=== PATIENT | male | born 1995 | race African-American/Black ===

== ENCOUNTER 2021-01-10 13:42 | Emergency (ER) | payer OTHER ==
[~2021-01-10] VITALS: Ht 182.9 cm; Wt 110.9 kg
[~2021-01-10 13:42] MED LIST: NAPR-682 PO
[2021-01-10 13:55] VITALS: BP 132/83
--- NOTE | 2021-01-10 14:38 | PHYS DOC ---
Past Medical History Past Medical History: No Pertinent History Past Surgical History: No Surgical History Smoking Status: Current Every Day Smoker Alcohol Use: None Drug Use: None General Adult EDM: Chief Complaint: HAND PROBLEM HPI: HPI: Patient is a 25-year-old male who presents to the emergency department for multiple complaints. Patient was brought in by EMS. Patient is reporting left hand pain that started today. Patient and his child's mother got in a dispute and PD was called, patient was placed in handcuffs, he reports that he had a boxer's fracture that was surgically repaired 3 days ago in [facility] and following the placement of handcuffs he started having pain. No treatment for pain prior to arrival. Patient is also requesting to be tested for COVID-19 as well as STDs. Patient reports that he has a productive cough but that he is a smoker and always has a cough. Patient denies any STI symptoms. Patient juan es urethral discharge, urethral pain, fevers, shortness of breath, loss of taste or smell, any injury, decreased range of motion or decreased sensation to hand. Review of Systems: Review of Systems: 14 body systems of the review of systems have been reviewed. See HPI for pertinent positive and negative responses, otherwise all other systems are neg ative, nonpertinent or noncontributory Heart Score: C/O Chest Pain: N/A Risk Factors: Risk Factors: DM, Current or recent (<one month) smoker, HTN, HLP, family history of CAD, obesity. Risk Scores: Score 0 - 3: 2.5% MACE over next 6 weeks - Discharge Home Score 4 - 6: 20.3% MACE over next 6 weeks - Admit for Clinical Observation Score 7 - 10: 72.7% MACE over next 6 weeks - Early Invasive Strategies Allergies: Allergies: Allergies Coded Allergies Type Severity Reaction Last Updated Verified No Known Drug Allergies 06/15/13 No Physical Exam: PE: Constitutional: Well developed, well nourished, no acute distress, non-toxic appearance. [] HENT: Normocephalic, atraumatic, bilateral external ears normal, oropharynx moist, no oral exudates, nose normal. [] Eyes: PERRL, EOMI, conjunctiva normal, no discharge. [] Neck: Normal range of motion, no stridor Cardiovascular: Normal peripheral perfusion Lungs & Thorax: Normal work of breathing, no tachypnea Abdomen: Soft and flat Skin: Warm, dry, no erythema, no rash. [] Back: Normal range of motion Extremities: No tenderness, no cyanosis, no clubbing, ROM intact, no edema. Left hand: Mild swelling noted to the dorsal aspect of patient's left hand, patient has [address] to dorsal aspect of patient's left hand proximal to fourth finger, there are no surrounding signs of infection, range of motion intact, neuro intact Neurologic: Alert and oriented X 3, normal motor function, normal sensory function, no focal deficits noted. [] Psychologic: Affect normal, judgement normal, mood normal. [] Current Patient Data: Vital Signs: Vital Signs Date Time Temp Pulse Resp B/P (MAP) Pulse Ox O2 Delivery O2 Flow Rate FiO2 01/10/21 13:55 98.3 94 17 132/83 (99) 98 Room Air 98.3 EKG: EKG: [] Radiology/Procedures: Radiology/Procedures: []REASON: hand surgery pain PROCEDURE: HAND LEFT 3V EXAM: Left hand, 3 views. HISTORY: Pain. COMPARISON: None. FINDINGS: 3 views of the left hand are obtained. There is internal fixation of a fourth metacarpal fracture with a pin in near anatomic alignment. There is suspected slight callus formation surrounding the fracture line, favoring a subacute etiology. There is dorsal hand soft tissue swelling. IMPRESSION: Internal fixation of a suspected subacute healing fracture of the fourth metacarpal. There are no prior studies for comparison. Electronically signed by: Kacie Hernandez MD (01/10/2021 2:36 PM) [id number] DICTATED and SIGNED BY: KACIE HERNANDEZ MD DATE: 01/10/21 [id number] 0 Course & Med Decision Making: Course & Med Decision Making Pertinent Labs and Imaging studies reviewed. (See chart for details) [] Patient presents to the emergency department for multiple complaints. He reports that after being kept by the police today he was complaining of left hand pain, he had a boxer's fracture repaired surgically 3 days ago. Patient is also wanting to be tested for STDs although he has no symptoms. Patient is also wanting to be tested for Covid because he is a chronic productive cough. Patient was tested for gonorrhea and chlamydia and will be notified of those results when they become available. He was also tested for COVID-19 and will be notified of those results when they become available. X-ray was performed of patient's left hand that showed internal fixation and a healing fracture. Patient's pain was treated in the ER.. Patient's surgical site appears to be healing well, the 1 suture is intact and there is no signs of infection. Hand is neurovascularly intact and he has range of motion of hand. Patient advised to take anti-inflammatory medications and apply ice at home. He is requesting narcotic pain medication-pt will be discharged home with tramadol. Patient has been uncooperative and belligerent during his entire ER stay. He refused Covid testing and STI testing although he was the one that requested the testing. Patient refused to tell us the pharmacy which he wanted his tramadol electronically transmitted. We notify patient that narcotic prescriptions can only be electronically transmitted and it is required that we electronically transmitted to a pharmacy. Patient refused to give us a pharmacy name therefore tramadol was not sent for him. Patient is currently in PD custody and they will be arresting him once he is discharged from the emergency department. Patient became very aggressive and began spitting on PD once he was discharged and being arrested. He was advised to follow-up with the surgeon that repaired his boxer's fracture. I discussed with patient all findings and diagnostic testing as well as the need to follow-up with PCP for further evaluation and treatment or return to the ER if any new or worsening symptoms. Strict return precautions were also discussed at length. Patient voiced understanding and agreement with the plan. Patient is hemodynamically stable at the time of disposition. Savita Disclaimer: Savita Disclaimer: This electronic medical record was generated, in whole or in part, using a voice recognition dictation system. Departure Departure Impression: Primary Impression: Hand pain Qualified Codes: M79.642 - Pain in left hand Additional Impressions: Screen for sexually transmitted diseases Person under investigation for COVID-19 Disposition: HOME / SELF CARE / HOMELESS Condition: GOOD Referrals: JACKY CORONEL (PCP) Patient Instructions: Hand Fracture, Sexually Transmitted Disease, [id number] Additional Instructions: You were seen in the emergency department for left hand pain. An x-ray was performed that shows that the pin is in place and your fracture is healing. You requested to be tested for COVID-19 and STIs. You will be notified of these results via telephone in approximately 2 days when they become available. Please self isolate until you receive these results. You requested to be treated preventatively for STIs. You received a antibiotic shot in the ER and you will be discharged home with an antibiotic that you need to take. Start and finish it completely. Avoid any sexual intercourse for 10 to 14 days. You can take anti-inflammatory medications such as ibuprofen or naproxen for your pain at home. You can apply ice and use elevation to help with swelling. Follow-up with the surgeon that performed your boxer's fracture repair as soon as possible. Return to the emergency department if you develop worsening of your pain, decreased range of motion or decreased sensation to your hand, shortness of breath, chest pain, high fevers refractory to treatment. EMERGENCY DEPARTMENT GENERAL DISCHARGE INSTRUCTIONS Thank you for coming to [facility] Emergency Department (ED) today and trusting us with you care. We trust that you had a positive experience in our E mergency Department. If you wish to speak to the department management, you may call the Director at [phone]. YOUR FOLLOW UP INSTRUCTIONS ARE FOLLOWS: 1. Do you have a private Doctor? If you do not have a private doctor, please ask for a resource list of physicians or clinics that may be able to assist you with follow up care. 2. The Emergency Physicain has interpreted your x-rays. The X-Ray specialist will also review them. If there is a change in the findings, you will be notified in 48 hours when at all possible. 3. A lab test or culture has been done, your results will be reviewed and you will be notified if you need a change in treatment. ADDITIONAL INSTRUCTIONS AND INFORMATION: 1. Your care today has been supervised by a physician who is specially trained in emergency care. Many problems require more than one evaluation for a complete diagnosis a nd treatment. We recommend that you schedule your follow up appointment as recommended to ensure complete treatment of you illness or injury. If you are unable to obtain follow up care and continue to have a problem, or if your condition worsens, we recommend that you return to the ED. 2. We are not able to safely determine your condition over the phone nor are we able to give sound medical advice over the phone. For these safety reasons, if you call for medical advice we will ask you to come to the ED for further evaluation. 3. If you have any questions regarding these discharge instructions please call the ED at [phone]. SAFETY INFORMATION: In the interest of safety, wellness, and injury prevention; we encourage you to wear your sealbelt, if you smoke; quite smoking, and we encourage family to use a protective helmet for bicycling and other sporting events that present an increased risk for head injury. IF YOUR SYMPTOMS WORSEN OR NEW SYMPTOMS DEVELOP, OR YOU HAVE CONCERNS ABOUT YOUR CONDITION; OR IF YOUR CONDITION WORSENS WHILE YOU ARE WAITING FOR YOUR FOLLOW UP APPOINTMENT; EITHER CONTACT YOUR PRIMARY CARE DOCTOR, THE PHYSICIAN WHOSE NAME AND NUMBER YOU WERE GIVEN, OR RETURN TO THE ED IMMEDIATELY. Scripts Doxycycline Hyclate (DOXYCYCLINE HYCLATE) 100 Mg Tablet 1 TAB PO BID for 7 Days, #13 TAB 0 Refills Prov: GISEL CHRISTIE APRN 01/10/21 GISEL CHRISTIE APRN Jan 10, 2021 14:38
--- NOTE | 2021-01-10 14:38 | RAD ---
EXAM: Left hand, 3 views. HISTORY: Pain. COMPARISON: None. FINDINGS: 3 views of the left hand are obtained. There is internal fixation of a fourth metacarpal fr acture with a pin in near anatomic alignment. There is suspected slight callus formation surrounding the fracture line, favoring a subacute etiology. There is dorsal hand soft tissue swelling. IMPRESSION: Internal fixation of a suspected subacute healing fracture of the fourth metacarpal. Ther e are no prior studies for comparison. Electronically signed by: Kacie Hernandez MD (01/10/2021 2:36 PM) [id number]
[2021-01-10] MEDS ORDERED: IBUPROFEN 200 MG TABLET. PO ONE (14:45)
[2021-01-10] MEDS ORDERED: DOXY100T PO (14:48)
[2021-01-10] MEDS ORDERED: LIDOCAINE 1% PF 2 ML VIAL. ONE (14:56)
[2021-01-10] MEDS ORDERED: DOXYCYCLINE HYCLATE 100 MG TABLET PO ONE (15:00)
[2021-01-10] MEDS ORDERED: cefTRIAXone IM 500 MG VIAL. IM ONE (15:00)
[2021-01-10] MEDS ORDERED: HYDROcodone/APAP 5/325MG 1 TAB TABLET PO ONE (15:15)
== END 2021-01-10 15:14 | disposition home or self-care (01) ==
LOC: ER 13:42
DX: M79.642 Pain in left hand (principal); Z20.822 Contact with and (suspected) exposure to COVID-19; Z20.2 Contact with and (suspected) exposure to infections with a predominantly sexual mode of transmission; F17.200 Nicotine dependence, unspecified, uncomplicated
CPT/HCPCS: 12001; 73130; 99282; 99283